=== PATIENT | female | born 1955 | race Caucasian/White ===

== ENCOUNTER 2018-07-08 06:38 | Day surgery (SDC) | payer BC ==
[2018-07-08] MEDS ORDERED: PROPOFOL 200 MG INJ (07:00)
[2018-07-08] MEDS ORDERED: PROPOFOL 40 ML (07:21)
[2018-07-08] MEDS ORDERED: LIDOCAINE 2% (SDV) 5 ML INJ (07:21)
[2018-07-08] MEDS ORDERED: PHENYLephrine (100 MCG/ML) 5ML SYG (07:39)
== END 2018-07-08 16:32 | disposition home or self-care (01) ==
LOC: GIL 06:38
DX: Z12.11 Encounter for screening for malignant neoplasm of colon (principal); K64.8 Other hemorrhoids
CPT/HCPCS: 45378